=== PATIENT | female | born 1930 | race Caucasian/White ===

== ENCOUNTER 2019-07-19 05:30 | Inpatient (IN) | payer MEDICARE, BC ==
[2019-07-12 11:55] LABS: BASOPHILS # (AUTO) 0.1 X10'3 (0-0.2); BASOPHILS % (AUTO) 0.9 % (0-1); EOSINOPHILS # (AUTO) 0.2 X10'3 (0-0.9); EOSINOPHILS % (AUTO) 2.8 % (0-6); LYMPHOCYTES # (AUTO) 1.8 X10'3 (1.1-4.8); LYMPHOCYTES % (AUTO) 31.6 % (21-51); MEAN CORPUSCULAR HEMOGLOBIN 33.5 PG (27.0-31.0); MEAN CORPUSCULAR HGB CONC 33.5 g/dL (33.0-36.5); MEAN PLATELET VOLUME 8.1 FL (7.4-10.4); MONOCYTES # (AUTO) 0.3 X10'3 (0-0.9); MONOCYTES % (AUTO) 5.9 % (2-12); NEUTROPHILS # (AUTO) 3.3 X10'3 (1.8-7.7); NEUTROPHILS % (AUTO) 58.8 % (42-75); PRE OP HEMATOCRIT 41.3 % (35.0-45.0); PRE OP HEMOGLOBIN 13.8 g/dL (12.0-16.0); PRE OP PLATELET COUNT 270 X10'3 (140-440); RED BLOOD COUNT 4.13 X10'6 (4.20-5.60); RED CELL DISTRIBUTION WIDTH 12.8 % (11.5-14.5)
[2019-07-12 12:03] LABS: PRE OP INR 0.9 INR; PRE OP PROTIME 9.6 SECONDS (9.0-12.0)
[2019-07-12 12:07] LABS: ALBUMIN 3.7 G/DL (3.4-5.0); ALBUMIN/GLOBULIN RATIO 1.1 (1.1-1.5); ALKALINE PHOSPHATASE 54 IU/L (46-116); BLOOD UREA NITROGEN 17 MG/DL (7-18); BUN/CREATININE RATIO 17.9 (6.6-38.0); CALCIUM 9.3 MG/DL (8.5-10.1); CHLORIDE 108 MMOL/L (99-107); CREATININE 0.95 MG/DL (0.40-0.90); PRE OP ALT 26 U/L (30-65); PRE OP ANION GAP 7 (8-16); PRE OP AST 20 U/L (10-37); PRE OP BILIRUB, TOTAL 0.5 MG/DL (0.0-1.0); PRE OP GLUCOSE 96 MG/DL (70-104); PRE OP POTASSIUM 4.4 MMOL/L (3.4-5.1); PRE OP SODIUM 142 MMOL/L (135-145); TOTAL CARBON DIOXIDE 26.8 MMOL/L (24-32); TOTAL PROTEIN 7.1 G/DL (6.4-8.2); eGFR 56 ML/MIN
[~2019-07-19] VITALS: Ht 162.6 cm; Wt 72.1 kg
[2019-07-19] VITALS (15 sets, daily range): BP systolic 110–151; BP diastolic 44–77
[~2019-07-19 05:30] MED LIST: ACET-75 PO; ATOR10TA PO; BIMA2.5D EACHEYE; BRIM5DRO2 EACHEYE; CALC1TAB PO; ESTR1TAB19 PO; MAGN400C PO; MELA3TAB64 PO; MULT-1141 PO; NAPR220T67 PO; OMEG-44 PO; OXYB5TAB16 PO; acetaminophen 325mg tablet PO ONE; cefazolin/dext.iso 2gm/100 ML IV ONE; celeCOXIB 100mg capsule PO ONE; famotidine 20mg tablet PO ONE; gabapentin 300mg capsule PO ONE; metoclopramide 5 mg/ml inj IV ONE; oxyCODONE SR 10mg (sust. release) tab -2 tabs (20mg) PO ONE; ringers solution, lacted 1,000 ML IV SCH; tranexamic acid inj. 1,000 MG in normal saline 100 ML IV ONE; vancomycin inj 1,500 MG in normal saline 300ml IV soln IV ONE
[2019-07-19] MEDS ORDERED: LIDOcaine 1% (10mg/ml) 2ml vial ONE (05:59)
[2019-07-19] MEDS ORDERED: HYDROmorphone inj. 0.5 MG/0.5 ML DISP.SYRIN IV PRN (06:40)
[2019-07-19] MEDS ORDERED: bisacodyl 10mg suppository rectal RC PRN (06:40)
[2019-07-19] MEDS ORDERED: acetaminophen 325mg tablet PO PRN (06:40)
[2019-07-19] MEDS ORDERED: ondansetron/PF 4mg/2ml inj IV PRN ×2 (06:40→08:10)
[2019-07-19] MEDS ORDERED: magnesium hydroxide 30ml (MOM) UD suspension PO PRN (06:40)
[2019-07-19] MEDS ORDERED: diphenhydrAMINE 25mg capsule PO PRN ×2 (06:40)
[2019-07-19] MEDS ORDERED: HYDROmorphone 1 mg/ml syringe IV PRN ×2 (06:40→10:38)
[2019-07-19] MEDS ORDERED: ROPIVAcaine 0.5% (5mg/ml) 30ml vial ONE ×2 (06:44→08:55)
[2019-07-19] MEDS ORDERED: vancomycin 1,000mg inj ONE (06:44)
[2019-07-19] MEDS ORDERED: cloNIDine hcl/PF 100mcg/ml inj ONE (06:44)
[2019-07-19] MEDS ORDERED: ketorolac trometh. 30mg/ml inj. ONE (06:44)
[2019-07-19] MEDS ORDERED: epiNEPHrine 1 mg/ml inj ONE (06:44)
[2019-07-19] MEDS ORDERED: MIDAZolam 5mg/5ml vial ONE (07:19)
[2019-07-19] MEDS ORDERED: fentaNYL/PF 50MCG/1 ML 2ML syringe ONE (07:19)
[2019-07-19] MEDS ORDERED: vancomycin/NS 1 GM ADD-VANTAGE 250 ML IV SCH (08:00)
[2019-07-19] MEDS ORDERED: non-formulary drug (Magnesium Oxide (Magnesium) 1 CAP) PO SCH (08:00)
[2019-07-19] MEDS ORDERED: non-formulary drug (Brimonidine Tartrate/Timolol (Combigan Eye Drops) 1 DROP) EACHEYE SCH (08:00)
[2019-07-19] MEDS ORDERED: non-formulary drug (Mu-Vits-Min Th/Lycopene/Lutein (Centrum Silver Tablet) 1 EACH) PO SCH (08:00)
[2019-07-19] MEDS ORDERED: ringers solution, lacted 1,000 ML IV SCH (08:09)
[2019-07-19] MEDS ORDERED: ROPIVAcaine 0.2%/PF PAIN PUMP 400 ML IJ SCH (08:09)
[2019-07-19] MEDS ORDERED: morphine 4 MG/ML inj SYRINge IV PRN ×2 (08:10)
[2019-07-19] MEDS ORDERED: proCHLORperazine 10 MG/2 ml inj IV PRN (08:10)
[2019-07-19] MEDS ORDERED: meperidine/PF 25mg/ml syringe IV PRN ×3 (08:10)
--- NOTE | 2019-07-19 09:30 | NUR ---
Received from OR via [facility], accompanied by Anesthesiologist DR. JARAMILLO and report given by Anesthesiolgist. PT ARRIVED AWAKE AND ALERT ON RA. WHEN SHE DOZES OFF SHE HER SAT DROPPED SO PLACED ON 2L NC. MOVES UPPER EXT WNL. SPINAL SENSATION AT HIGH THIGH. PULSES AND TECHNICAL INTERN WNL. FC TO GRAVITY WITH CLEAR YELLOW URINE. SCDS IN PLACE. VICENTE DRESSING IN PLACE TO LT KNEE WITH GREEN LIGHT ON. KNEE WRAP WITH POWDER PACK IN PLACE
--- NOTE | 2019-07-19 10:20 | NUR ---
Report called to receiving nurse BRUNILDA MASSEY. Transferred via [facility] TO ROOM 4023B WITH ALL Belongings AT [facility]. Special Issues communicated to receiving nurse. VSS ON 2L NC. ON-Q IN PLACE AT 4ML/HR
[2019-07-19] MEDS: ceFAZolin 1GM/D5W- ADD-VANTAGE 50 ML IV SCH ×2 (10:54→16:25)
[2019-07-19] MEDS: oxybutynin 5mg tablet PO SCH ×2 (10:55→20:27)
[2019-07-19] MEDS: gabapentin 300mg capsule PO SCH ×3 (10:56→20:26)
[2019-07-19] MEDS: ascorbic acid 500mg tablet PO SCH ×2 (10:56→20:26)
[2019-07-19] MEDS: aspirin 325mg tablet PO SCH (10:57)
[2019-07-19] MEDS: potassium cl 20mEq in 1/2 NS 1,000 ML IV SCH ×3 (12:10→22:33)
[2019-07-19] MEDS: HYDROcodone/acetaminophen 10/325mg tab PO PRN ×2 (12:47→16:26)
[2019-07-19] MEDS ORDERED: tranexamic acid inj. 720 MG in normal saline 100ml IV soln 100 ML IV ONE (13:30)
[2019-07-19] MEDS: sennosides 8.6mg tablet PO SCH (20:27)
[2019-07-19] MEDS: estradiol 1mg tablet PO SCH (20:27)
[2019-07-19] MEDS: atorvastatin 10mg tablet PO SCH (20:27)
[2019-07-19] MEDS: latanoprost 0.005% 2.5ml ophthalmic drops EACHEYE SCH (20:30)
[2019-07-19] MEDS: timolol 0.5% ophthalmic solution 5ml bottle EACHEYE SCH (20:30)
[2019-07-19] MEDS: brimonidine 0.2% 5 ML ophthalmic drops EACHEYE SCH (20:30)
[2019-07-19] MEDS ORDERED: non-formulary drug (Bimatoprost (Lumigan) 2.5 ML) EACHEYE SCH (21:00)
[2019-07-20 02:00] VITALS: BP 117/54
[2019-07-20] MEDS: HYDROcodone/acetaminophen 10/325mg tab PO PRN ×4 (05:23→20:51)
[2019-07-20 05:39] LABS: BASOPHILS % (AUTO) 0.5 % (0-1); EOSINOPHILS # (AUTO) 0.3 X10'3 (0-0.9); EOSINOPHILS % (AUTO) 4.5 % (0-6); HEMATOCRIT 32.3 % (35.0-45.0); LYMPHOCYTES # (AUTO) 2.1 X10'3 (1.1-4.8); LYMPHOCYTES % (AUTO) 27.6 % (21-51); MEAN CORPUSCULAR HEMOGLOBIN 34.3 PG (27.0-31.0); MEAN CORPUSCULAR HGB CONC 33.9 g/dL (33.0-36.5); MEAN CORPUSCULAR VOLUME 101.3 FL (78-98); MEAN PLATELET VOLUME 8.4 FL (7.4-10.4); MONOCYTES # (AUTO) 0.5 X10'3 (0-0.9); MONOCYTES % (AUTO) 6.7 % (2-12); NEUTROPHILS # (AUTO) 4.7 X10'3 (1.8-7.7); NEUTROPHILS % (AUTO) 60.7 % (42-75); PLATELET COUNT 202 X10'3 (140-440); RED BLOOD COUNT 3.19 X10'6 (4.20-5.60); RED CELL DISTRIBUTION WIDTH 12.8 % (11.5-14.5); WHITE BLOOD COUNT 7.7 X10'3 (4.5-11.0)
[2019-07-20 05:50] LABS: ANION GAP 7 (8-16); CHLORIDE 110 MMOL/L (99-107); POTASSIUM 4.5 MMOL/L (3.5-5.1); SODIUM 142 MMOL/L (135-145); TOTAL CARBON DIOXIDE 25.5 MMOL/L (24-32)
--- NOTE | 2019-07-20 05:57 | NUR ---
F/C D/C'D PER PROTOCOL. PT TOLERATED WELL.
[2019-07-20 06:00] VITALS: BP 134/57
--- NOTE | 2019-07-20 06:06 | NUR ---
REPORT GIVEN TO BRYSON OTERO.
[2019-07-20] MEDS: potassium cl 20mEq in 1/2 NS 1,000 ML IV SCH ×2 (06:39→14:39)
[2019-07-20] MEDS: timolol 0.5% ophthalmic solution 5ml bottle EACHEYE SCH ×2 (09:09→20:52)
[2019-07-20] MEDS: brimonidine 0.2% 5 ML ophthalmic drops EACHEYE SCH ×2 (09:09→20:51)
[2019-07-20] MEDS: oxybutynin 5mg tablet PO SCH ×2 (09:09→20:51)
[2019-07-20] MEDS: ascorbic acid 500mg tablet PO SCH ×2 (09:10→20:51)
[2019-07-20] MEDS: gabapentin 300mg capsule PO SCH ×3 (09:10→20:50)
[2019-07-20] MEDS: magnesium oxide 400mg tablet PO SCH (09:10)
[2019-07-20] MEDS: aspirin 325mg tablet PO SCH (09:10)
[2019-07-20] MEDS: multivitamins, therapeutics tablet PO SCH (09:10)
[2019-07-20 10:00] VITALS: BP 115/32
--- NOTE | 2019-07-20 10:52 | NUR ---
Joint replacement consult: Pt/SO seen by NETO for written/verbal high protein ed. RD reviewed high protein needs for wound healing, immune strength, high protein foods, and protein supplementation options. RD contact information provided in case of further questions. Pt declines additional proteins at this time; requests OJ w/ breakfasts dietary notified. Pt reports large portions sometimes too large but endorses good appetite. Will continue to monitor. Addendum: 07/20/19 at [address] Amended: Links added.
[2019-07-20 14:00] VITALS: BP 135/80
[2019-07-20 18:00] VITALS: BP 154/74
--- NOTE | 2019-07-20 18:40 | NUR ---
Report to BRYSON Jacinto
[2019-07-20] MEDS: sennosides 8.6mg tablet PO SCH (20:50)
[2019-07-20] MEDS: atorvastatin 10mg tablet PO SCH (20:50)
[2019-07-20] MEDS: estradiol 1mg tablet PO SCH (20:51)
[2019-07-20] MEDS: celeCOXIB 100mg capsule PO SCH (20:51)
[2019-07-20] MEDS: latanoprost 0.005% 2.5ml ophthalmic drops EACHEYE SCH (20:52)
[2019-07-20 22:00] VITALS: BP 136/55
[2019-07-21] MEDS: HYDROcodone/acetaminophen 10/325mg tab PO PRN (05:22)
[2019-07-21 06:00] VITALS: BP 160/58
--- NOTE | 2019-07-21 06:14 | NUR ---
Report given to dov Anthony.
[2019-07-21 07:45] LABS: BASOPHILS % (AUTO) 0.1 % (0-1); EOSINOPHILS # (AUTO) 0.2 X10'3 (0-0.9); EOSINOPHILS % (AUTO) 2.2 % (0-6); HEMATOCRIT 35.2 % (35.0-45.0); HEMOGLOBIN 12.1 g/dl (12.0-16.0); LYMPHOCYTES % (AUTO) 10.7 % (21-51); MEAN CORPUSCULAR HEMOGLOBIN 34.3 PG (27.0-31.0); MEAN CORPUSCULAR HGB CONC 34.3 g/dL (33.0-36.5); MEAN CORPUSCULAR VOLUME 99.9 FL (78-98); MEAN PLATELET VOLUME 8.4 FL (7.4-10.4); MONOCYTES # (AUTO) 0.6 X10'3 (0-0.9); MONOCYTES % (AUTO) 6.5 % (2-12); NEUTROPHILS # (AUTO) 7.7 X10'3 (1.8-7.7); NEUTROPHILS % (AUTO) 80.5 % (42-75); PLATELET COUNT 211 X10'3 (140-440); RED BLOOD COUNT 3.52 X10'6 (4.20-5.60); RED CELL DISTRIBUTION WIDTH 12.6 % (11.5-14.5); WHITE BLOOD COUNT 9.5 X10'3 (4.5-11.0)
[2019-07-21] MEDS: gabapentin 300mg capsule PO SCH (08:11)
[2019-07-21] MEDS: magnesium oxide 400mg tablet PO SCH (08:12)
[2019-07-21] MEDS: multivitamins, therapeutics tablet PO SCH (08:12)
[2019-07-21] MEDS: celeCOXIB 100mg capsule PO SCH (08:12)
[2019-07-21] MEDS: aspirin 325mg tablet PO SCH (08:12)
[2019-07-21] MEDS: oxybutynin 5mg tablet PO SCH (08:12)
[2019-07-21] MEDS: ascorbic acid 500mg tablet PO SCH (08:12)
[2019-07-21] MEDS: timolol 0.5% ophthalmic solution 5ml bottle EACHEYE SCH (08:12)
[2019-07-21] MEDS: brimonidine 0.2% 5 ML ophthalmic drops EACHEYE SCH (08:13)
[2019-07-21] MEDS ORDERED: POLY250017 PO (09:48)
[2019-07-21] MEDS ORDERED: SENN-173 PO (09:48)
[2019-07-21] MEDS ORDERED: GABA300C PO (09:48)
[2019-07-21] MEDS ORDERED: ONDA4TAB12 PO (09:48)
[2019-07-21] MEDS ORDERED: ASPI-1 PO (09:48)
[2019-07-21] MEDS ORDERED: HYDR-3972 PO (09:49)
[2019-07-21] MEDS ORDERED: DULO-31 PO (09:52)
[2019-07-21 10:00] VITALS: BP 132/55
== END 2019-07-21 15:25 | disposition home or self-care (01) | DRG 470 ==
LOC: PAS IN 05:30 → EDSTATUS 07:30 → ORTHO 4S 10:15
PROVIDERS: ADMIT Orthopaedic Surgery; ATTEND Orthopaedic Surgery
PROC: 3E0T3BZ Introduction of Anesthetic Agent into Peripheral Nerves and Plexi, Percutaneous Approach (ICD-10-PCS; 2019-07-19)
PROC: 0SRD0L9 Replacement of Left Knee Joint with Medial Unicondylar Synthetic Substitute, Cemented, Open Approach (ICD-10-PCS; principal; 2019-07-19 07:18)
DX: M17.12 Unilateral primary osteoarthritis, left knee (principal); D62 Acute posthemorrhagic anemia; R39.15 Urgency of urination; E78.5 Hyperlipidemia, unspecified; N18.3 Chronic kidney disease, stage 3 (moderate); Z87.891 Personal history of nicotine dependence; Z90.710 Acquired absence of both cervix and uterus; Z72.89 Other problems related to lifestyle; Z79.899 Other long term (current) drug therapy
CPT/HCPCS: 36415; 71046; 73560; 80051; 80053; 82948; 85025; 85610; 85730; 86885; 86900; 86901; 87081; 97110; 97116; 97162; 97530; A4215; A6449; A6454; A7000; C1713; C1758; C1776; G0378; J0171; J0690; J0735; J1885; J2001; J2250; J2405; J2765; J2795; J3010; J3370; J3480; J7120